=== PATIENT | male | born 1995 | race Caucasian/White ===

== ENCOUNTER → 2020-03-04 | Outpatient (CLI) | payer OTHER ==
[~2020-03-04] MED LIST: ALBUTEROL INHAL17 GM IH; FLOVENT DISKUS50 MCG; KEFLEX500 MG PO; LAMISIL15 GM; LEXAPRO 10 MG T10 MG PO; LEXAPRO20 MG; PERCOCET 5-3251 EACH PO; PREDNISONE 20 M20 MG PO; VENTOLIN HFA 1818 GM INH; VICODIN 5-5001 EACH PO
== END ==
LOC: LAB 12:05
PROVIDERS: ATTEND Nurse Practitioner
DX: R51 Headache (principal); R19.7 Diarrhea, unspecified; M54.2 Cervicalgia; R21 Rash and other nonspecific skin eruption; Z20.828 Contact with and (suspected) exposure to other viral communicable diseases

== ENCOUNTER → 2020-05-09 | Outpatient (CLI) | payer OTHER | LOC: LAB 14:27 | PROVIDERS: ATTEND Family Medicine | DX: Z20.828 Contact with and (suspected) exposure to other viral communicable diseases (principal) ==

== ENCOUNTER → 2020-06-19 | Outpatient (CLI) | payer BC | LOC: LAB 14:03 | PROVIDERS: ATTEND Family Medicine | DX: Z20.828 Contact with and (suspected) exposure to other viral communicable diseases (principal) ==